=== PATIENT | female | born 2000 | race Caucasian/White ===

== ENCOUNTER 2023-09-16 15:21 | Outpatient (REF) | payer BC, SELFPAY ==
--- NOTE | ~2023-09-16 | MR_ITS ---
EXAMINATION: MR LUMBAR SPINE WITHOUT CONTRAST CLINICAL INFORMATION: Low back pain. COMPARISON: None available. TECHNIQUE: MRI of the lumbar spine was obtained using routine sequences without contrast. FINDINGS: At the L5-S1 level, there is [id number] disc space narrowing and reduced intradiscal signal with a small central disc protrusion and underlying annular tear mildly impressing upon the ventral thecal sac. Minimal posterior subluxation noted. No visible nerve root impingement is seen. No central canal stenosis or foraminal narrowing evident at this level. The remaining lower thoracic and lumbar discs are well-hydrated and normal in appearance without central canal stenosis or foraminal narrowing. The distal cord, conus tip, and cauda equina nerve roots are normal. The paraspinal soft tissues are unremarkable. Very mild rightward lumbar spinal curvature noted. The imaged bony pelvis appears normal. 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 No central canal stenosis or foraminal narrowing.
== END 2023-09-16 15:22 | disposition home or self-care (01) ==
LOC: HO.MRI 15:21
PROVIDERS: Visit Provider Family Medicine Sports Medicine
DX: M54.50 Low back pain, unspecified (principal); G56.00 Carpal tunnel syndrome, unspecified upper limb
CPT/HCPCS: 72148